=== PATIENT | male | born 1970 | race Caucasian/White ===

== ENCOUNTER → 2022-09-01 11:57 | Outpatient (CLI) | payer OTHER, SELFPAY ==
--- NOTE | ~2022-09-01 | MR_ITS ---
EXAMINATION: MR cervical spine wo/w con DATE: 09/01/2022 13:12 INDICATION: Cervical spondylosis without myelopathy or radiculopathy. TECHNIQUE: Magnetic resonance imaging (MRI) of the cervical spine was performed without and with 20 m L MultiHance intravenous contrast. COMPARISON: Cervical spine radiographs 02/15/2013 FINDINGS: There is kyphosis of cervical spine. There is 4 degrees levocurvature of cervicothoracic sp ine. Vertebral body heights are normal. There is moderately decreased disc height at C4-C5. There are changes of anterior fusion procedure at C5-C6 with interbody bone graft and anterior plate and screw s. The spinal cord signal intensity is normal. The following disc levels are specifically discussed: C2-C3: The disc does not extend beyond the endplate margin. There is no uncovertebral joint osteoarth ritis. There is no facet joint osteoarthritis. There is no neural foraminal stenosis. There is no sierra tral canal stenosis. C3-C4: The disc does not extend beyond the endplate margin. There is mild bilateral uncovertebral merced nt osteoarthritis. There is mild right facet joint osteoarthritis. There is mild right neural foramin al stenosis. There is no central canal stenosis. C4-C5: The disc is bulging. There is severe right and moderate left uncovertebral joint osteoarthriti s. There is mild right facet joint osteoarthritis. There is moderate right and mild left neural isra inal stenosis. There is mild central canal stenosis. C5-C6: There is mild right and moderate left uncovertebral joint hypertrophy. There is mild bilateral facet joint osteoarthritis. There is mild bilateral neural foraminal stenosis. There is no central c anal stenosis. C6-C7: The disc does not extend beyond the endplate margin. There is mild right and moderate left unc overtebral joint osteoarthritis. There is severe right and mild left facet joint osteoarthritis. Ther e is mild right and moderate left neural foraminal stenosis. There is no central canal stenosis. C7-T1: The disc does not extend beyond the endplate margin. There is no uncovertebral joint osteoarth ritis. There is mild bilateral facet joint osteoarthritis. There is moderate neural foraminal stenosi s. There is no central canal stenosis. IMPRESSION: 1. Moderate cervical spondylosis. 2. Anterior fusion procedure C5-C6. Reviewed, dictated and finalized at location A. CAL IMAGING DIRECTOR
== END ==
PROVIDERS: Visit Provider Neurological Surgery
DX: M47.812 Spondylosis without myelopathy or radiculopathy, cervical region (principal); Z98.1 Arthrodesis status
CPT/HCPCS: 72156; A9577

== ENCOUNTER 2023-04-13 17:55 | Emergency (ER) | payer OTHER, SELFPAY ==
--- NOTE | ~2023-04-13 | XR_ITS ---
EXAMINATION: XR chest 2V Exam Date/Time: 04/13/2023 18:30 CDT HISTORY: COUGH, SOB X 2 WEEKS LEFT SIDE LOWER CHEST PAIN Comparison: 04/11/2012. RESULT: Lines, tubes, and devices: ACDF hardware. Lungs and pleura: Clear. Cardiomediastinal silhouette: Stable. Other: No acute osseous or upper abdominal finding. IMPRESSION: No acute cardiopulmonary process. Reviewed, dictated and finalized at location K.
--- NOTE | 2023-04-13 18:21 | ED.URI ---
HPI - URI/Sore Throat General Chief Complaint: Upper Respiratory Infection Stated Complaint: sorethroat,congestion,lt side pain Time Seen by Provider: 04/13/23 18:21 Source: patient, RN notes reviewed and old records reviewed Mode of arrival: ambulatory Limitations: no limitations History of Present Illness HPI Narrative: 53-year-old male presents to the [facility] with complaints of sore throat, congestion, left side lower rib pain. Sore throat started 6 days ago. Congestion and rib pain started this morning. Patient has a history of asthma Related Data Home Medications Medication Instructions Recorded Confirmed albuterol sulfate 90 mcg/actuation 1 inh inhalation QID PRN Shortness 04/13/23 04/13/23 aerosol inhaler Of Breath beclomethasone dipropionate 40 1 inh inhalation Q12H 04/13/23 04/13/23 mcg/actuation HFA breath activated aerosol (Qvar RediHaler) famotidine 20 mg tablet (Pepcid) 20 mg PO DAILY 04/13/23 04/13/23 rosuvastatin 5 mg tablet 5 mg PO DAILY 04/13/23 04/13/23 tiotropium bromide 18 mcg capsule 1 cap inhalation DAILY 04/13/23 04/13/23 with inhalation device (Spiriva with HandiHaler) Allergies Allergy/AdvReac Type Severity Reaction Status Date / Time No Known Allergies Allergy Verified 04/13/23 18:23 Review of Systems Review of Systems: All systems reviewed & are unremarkable except as noted in HPI and below Constitutional: Constitutional: Reports no additional constitutional complaints Eyes: Eyes: Reports no additional eye complaints ENT: Reports as per HPI Cardiovascular: Cardiovascular: Reports no additional cardiovascular complaints, Denies chest pain and Denies dyspnea Respiratory: Respiratory: Reports as per HPI, Reports chest congestion, Reports cough and Reports dyspnea Gastrointestinal: Gastrointestinal: Reports no additional gastrointestinal complaints, Denies abdominal pain, Denies nausea and Denies vomiting Musculoskeletal: Musculoskeletal: Reports no additional musculoskeletal complaints Integumentary/Breasts: Skin/Breast: Reports system reviewed and no additional complaints, except as docu Neurologic: Reports system reviewed and no additional complaints, except as documented Psychiatric: Psychiatric: Reports no additional psychiatric complaints Allergic/Immunologic: Allergic/Immunologic: Reports no additional allergic/immunologic complaints PMFSH Past Medical History Medical History (Updated 04/13/23 @ 20:23 by Estelle Mei APRN) Asthma High cholesterol Family History Family History Other Diabetes mellitus Social History Social History Smoking status: Never smoker Alcohol intake: current Comments At the time of my signature, I reviewed and agree with the nursing past medical, surgical, social, and family history. There is no relevant family history pertinent to the patient complaint. Exam Const: General: cooperative, no acute distress, well developed, alert, ill appearing acutely (Mild), tired appearing, uncomfortable, well nourished and obese Nutritional Appearance: well nourished and obese Orientation/consciousness: patient oriented x3 Limitations: no limitations HENMT: Head: normal to inspection Ears: hearing grossly normal bilaterally and external ears normal Face/Nose/Sinus: Normal external nose present, Normal nares present, Normal nasal mucous membranes and turbinates present, normal facial exam and face symmetric Face and sinus: normal facial exam and face symmetric Mouth: Yes Normal oral and palatal mucosa present, Yes lip normal and Yes moist mucous membranes Throat: uvula midline and posterior oropharynx abnormal erythema Eyes: General: appearance normal, both eyes and all related structures Alignment and Position: alignment normal Periorbital: periorbital findings normal Pupils: Equal, round and reactive pupils present
[2023-04-13 18:32] VITALS: BP 146/92; PULSE 115; RESP 20; TEMP 38; O2SAT 100
== END 2023-04-13 19:06 | disposition home or self-care (01) ==
PROVIDERS: Emergency Provider Nurse Practitioner
DX: J40 Bronchitis, not specified as acute or chronic (principal); J06.9 Acute upper respiratory infection, unspecified; J45.909 Unspecified asthma, uncomplicated; E78.00 Pure hypercholesterolemia, unspecified
CPT/HCPCS: 71046; 87081; 87880; 99213; G0463

== ENCOUNTER 2023-04-13 23:03 | Emergency (ER) | payer OTHER, SELFPAY ==
--- NOTE | ~2023-04-13 | CT_ITS ---
Non-contrast CT scan of the Abdomen and Pelvis Clinical indication: Flank pain Technique: 2.5 mm axial scans were obtained through the abdomen and pelvis without intravenous or or al contrast. Dose reduction technique was used on this scan by utilizing automated exposure control a nd iterative reconstruction technique. The dose-length product (DLP) was 1478.34 mGy-cm. COMPARISON: 11/24/2011 Findings: Images through the lung bases reveal no abnormalities. There is a 5 mm stone at the mid left ureter, resulting in mild left hydroureteronephrosis to this le perlita (axial image 133). Additional small bilateral nonobstructing renal stones are present, measuring up to 2 mm in size. No right ureteral stone or right hydronephrosis. Hepatic cysts are present. The spleen, pancreas, gallbladder, and adrenals appear normal. There is n o aortic aneurysm. There is no evidence of bowel obstruction. Images through the pelvis were performed. There is no evidence of ascites or lymphadenopathy. Urinary bladder unremarkable. Prostate gland is enlarged. Impression: 5 mm mid left ureteral stone, with mild left hydroureteronephrosis. Additional very small bilateral nonobstructing renal stones, as detailed above. Enlarged prostate gland. Reviewed, dictated and finalized at location . Impression: 5 mm mid left ureteral stone, with mild left hydroureteronephrosis. Additional very small bilateral nonobstructing renal stones, as detailed above. Enlarged prostate gland.
[2023-04-13 23:33] VITALS: BP 144/84; PULSE 96; RESP 16; TEMP 36.6; O2SAT 98
[2023-04-14 03:53] VITALS: BP 132/87; PULSE 84; RESP 17; O2SAT 98
[2023-04-14] MEDS: MORPHINE SULFATE (*CRX) 4 MG/ML INJ IV PUSH ×2 (04:09→06:18)
[2023-04-14] MEDS: BENZONATATE 100 MG CAPSULE PO (04:10)
[2023-04-14] MEDS: KETOROLAC 30 MG/ML VIAL (*BKC) IV PUSH (04:10)
[2023-04-14] MEDS: SODIUM CHLORIDE 0.9% IV 1,000 ML 999 ML IV CONT (04:10)
[2023-04-14 04:25] LABS: Basophils Absolute Auto 0.1 K/mm3 (0.0-0.1); Basophils Percent Auto 0.5 % (0.2-1.2); Eosinophils Absolute Auto 0.2 K/mm3 (0-0.3); Eosinophils Percent Auto 1.5 % (0-4.4); Hematocrit 44.6 % (42.0-52.0); Hemoglobin 15.1 g/dL (14.0-18.0); Immature Granulocyte Absolute 0.05 K/mm3 (0.00-0.031); Immature Granulocyte Percent A 0.5 % (0-0.5); Lymphocytes Absolute Auto 1.22 K/mm3 (0.9-3.2); Lymphocytes Percent Auto 11.1 % (18.3-44.2); Mean Corpuscular HGB Conc 33.9 g/dl (32-36); Mean Corpuscular Hemoglobin 29.5 pg (26-34); Mean Corpuscular Volume 87.3 fl (80-100); Mean Platelet Volume 9.6 fl (7.4-10.4); Monocytes Absolute Auto 1.1 K/mm3 (0.1-0.6); Monocytes Percent Auto 10.1 % (2.6-8.5); Neutrophils Absolute Auto 8.4 K/mm3 (1.3-6.7); Neutrophils Percent Auto 76.3 % (45.5-73.1); Platelet Count Result 161 k/mm3 (150-375); Red Blood Count 5.11 M/mm3 (4.6-6.20); Red Cell Distribution Width 12.9 % (11.5-14.5)
[2023-04-14 04:30] LABS: Appearance Urine Clear (Clear); Bacteria Urine None Seen /hpf; Bilirubin Urine Negative (Negative); Blood Urine 1+ (Negative); Color Urine Yellow (Yellow); Glucose Urine UA Negative (Negative); Ketones Urine Negative (Negative); Leukocyte Esterase Ur Negative LEU/UL (Negative); Nitrate Urine Negative (Negative); Non Pathogenic Casts 0-2; Protein Urine Negative (Negative); Specific Grav Ur 1.012 (1.001-1.035); Squamous Epithelial Cell Urine None seen /hpf (Few); Urobilinogen Urine 0.2 mg/dL (<2.0); WBC Urine 0-5 /hpf; pH Urine 5.5 (5.0-9.0)
[2023-04-14 04:36] LABS: Alanine Aminotransferase 43 U/L (6-50); Albumin Level 4.6 g/dL (3.5-5.1); Alkaline Phosphatase 54 U/L (38-126); Anion Gap 10 mmol/L (8-16); Aspartate Amino Transferase 30 U/L (17-59); Bilirubin,Total 1.3 mg/dL (0.2-1.3); Blood Urea Nitrogen 19 mg/dL (9-20); Calcium 9.1 mg/dL (8.4-10.2); Carbon Dioxide 23 mmol/L (22-30); Chloride 104 mmol/L (98-107); Estimated CRCL calculation 57 ml/min; Estimated Glomerular Filt Rate 45; Glucose 110 mg/dL (65-110); Sodium 137 mmol/L (137-145)
[2023-04-14 04:38] LABS: Add Urine Microscopic? YES
[2023-04-14 04:40] VITALS: PULSE 74; RESP 14; O2SAT 95
--- NOTE | 2023-04-14 04:57 | ED.ABDPAIN ---
HPI - Abdominal Pain General Chief Complaint: Abdominal Pain Stated Complaint: left sided back pain Time Seen by Provider: 04/14/23 03:40 History of Present Illness HPI narrative: Patient presents to the emergency department from home with persistent left flank pain. He has also had upper respiratory symptoms and was seen at urgent care today. They told him his flank pain was likely related to the cough. However he has a history of kidney stones and believes this is more consistent with his kidney stone pain. Medications at home were not helping. Denies urinary symptoms. Denies fevers and chills. Was started on azithromycin and steroids today from urgent care. Related Data Home Medications Medication Instructions Recorded Confirmed albuterol sulfate 90 mcg/actuation 1 inh inhalation QID PRN Shortness 04/13/23 04/13/23 aerosol inhaler Of Breath beclomethasone dipropionate 40 1 inh inhalation Q12H 04/13/23 04/13/23 mcg/actuation HFA breath activated aerosol (Qvar RediHaler) famotidine 20 mg tablet (Pepcid) 20 mg PO DAILY 04/13/23 04/13/23 rosuvastatin 5 mg tablet 5 mg PO DAILY 04/13/23 04/13/23 tiotropium bromide 18 mcg capsule 1 cap inhalation DAILY 04/13/23 04/13/23 with inhalation device (Spiriva with HandiHaler) Allergies Allergy/AdvReac Type Severity Reaction Status Date / Time No Known Allergies Allergy Verified 04/14/23 03:52 Review of Systems Review of Systems: Review of systems negative except for what is documented in the [facility] Past Medical History Medical History (Updated 04/14/23 @ 05:47 by Karrie Fallon MD) Asthma High cholesterol Family History Family History Other Diabetes mellitus Social History Social History Smoking status: Never smoker Alcohol intake: current Exam Narrative: GENERAL: Well-appearing, well-nourished, and in no acute distress. uncomfortable HEAD: Normocephalic, atraumatic. EYES: PERRLA and EOMI. ENT: Nares clear, no rhinorrhea or epistaxis. Mucous membranes moist. NECK: Supple. CHEST: Clear to auscultation. No respiratory distress. HEART: Regular rate and rhythm. ABDOMEN: Soft, nontender, nondistended. EXTREMITIES: Normal range of motion. No edema. SKIN: Warm, dry, no rash. NEURO: No focal deficits. Alert and oriented x3. PSYCH: Normal mood and affect. Course Course Emergency Course: Patient was started on antibiotics and steroids today for bacterial bronchitis due to history of asthma. He was very uncomfortable upon my initial exam. 5.5 mm kidney stone noted. Upon further evaluation his creatinine is 1.6. He states it has been a little high in the past but is unsure. We will look at previous values. No urinary tract infection. Patient is feeling better. Will DC with urology follow-up Patient found old creatinine results 1.1. Overall he is feeling better. He will follow-up with urology today. Advised to drink plenty of fluids. Vital Signs Vital signs: Vital Signs Temperature 36.6 C 04/13/23 23:33 Pulse Rate 96 04/13/23 23:33 Respiratory Rate 16 04/13/23 23:33 Blood Pressure 144/84 H 04/13/23 23:33 Pulse Oximetry 98 04/13/23 23:33 Oxygen Delivery Room Air 04/13/23 23:33 Temperature 36.6 C 04/13/23 23:33 Pulse Rate 74 04/14/23 04:40 Respiratory Rate 14 04/14/23 04:40 Blood Pressure 132/87 04/14/23 03:53 Pulse Oximetry 95 04/14/23 04:40 Oxygen Delivery Room Air 04/13/23 23:33 MDM - Abdominal Pain Lab Data 04/14/23 04:18 04/14/23 04:18 Labs: Lab Results 04/14/23 Range/Units 04:18 WBC 11.0 H (4.5-10.0) K/mm3 RBC 5.11 (4.6-6.20) M/mm3 Hgb 15.1 (14.0-18.0) g/dL Hct 44.6 (42.0-52.0) % MCV 87.3 (80-100) fl MCH 29.5 (26-34) pg MCHC 33.9 (32-36) g/dl RDW 12.9 (11.5-14.5) % Plt Count 161
[2023-04-14 06:39] VITALS: BP 119/71; PULSE 76; O2SAT 95
--- NOTE | 2023-04-23 15:01 | PC.NURSE ---
LATE ENTRY This note is being entered to document information to the patient's record. The following information was omitted on [04/14/23], by [Judie Browning RN]. O445 IV fluids NS infused.
--- NOTE | 2023-04-24 07:09 | PC.NURSE ---
LATE ENTRY This note is being entered to document information to the patient's record. The following information was omitted on [04/14/23], by [Judie Trujillo. JOSELITO coekr @ [id number]
== END 2023-04-14 06:34 | disposition home or self-care (01) ==
PROVIDERS: Emergency Provider Emergency Medicine
DX: N13.2 Hydronephrosis with renal and ureteral calculous obstruction (principal); N28.9 Disorder of kidney and ureter, unspecified; J45.909 Unspecified asthma, uncomplicated; E78.00 Pure hypercholesterolemia, unspecified; N40.0 Benign prostatic hyperplasia without lower urinary tract symptoms
CPT/HCPCS: 36415; 71046; 74176; 80053; 81001; 85025; 87081; 87880; 96361; 96374; 96375; 96376; 99284; A9270; J1885; J2270; J7030

== ENCOUNTER 2023-04-24 14:32 | Outpatient (CLI) | payer OTHER, SELFPAY ==
--- NOTE | ~2023-04-24 | CT_ITS ---
EXAMINATION: CT abdomen pelvis wo con DATE: 04/24/2023 15:06 INDICATION: Left ureteral stone TECHNIQUE: Computed tomography (CT) of the abdomen and pelvis was performed without intravenous contr ast. Automated exposure control and iterative reconstruction technique were employed. Exam dose: 438 .49 mGy-cm total exam DLP. COMPARISON: 04/24/2023 KUB 04/14/2023 CT abdomen pelvis noncontrast examination FINDINGS: Mild discoid atelectasis of the lingula and left lower lobe. No consolidation at the lung b ases. No pericardial or pleural effusion. There is a small sliding hiatal hernia. There are four cystic lesions, measuring up[ to 3.7 cm maximal size. These have increased in size s tyra 11/24/2011. The spleen, pancreas, adrenal glands are normal. There is an approximately 3.7 x 4.6 mm calculus of the left ureter with mild to moderate left hydrour eteronephrosis. There is an approximately 2 mm nonobstructing right renal calculus. Normal caliber of the abdominal aorta. No intraperitoneal or retroperitoneal or pelvic mass lesion o r lymphadenopathy. No ascites. No evidence of appendicitis. There is a prominent amount of feces in the rectosigmoid area. No harry l obstruction or intraperitoneal free air. Prostate enlargement and calcification. Small fat containing umbilical hernia. No suspicious osteolytic or osteoblastic lesions. IMPRESSION: 4.7 mm obstructing left ureteral calculus with mild to moderate left hydroureteronephros is 2 mm nonobstructing right renal calculus Probable hepatic cysts Small sliding hiatal hernia Reviewed, dictated and finalized at Location A. Reviewed, dictated and finalized at location A. IMPRESSION: 4.7 mm obstructing left ureteral calculus with mild to moderate le ft hydroureteronephrosis 2 mm nonobstructing right renal calculus Probable hepatic cysts Small sliding hiatal hernia
--- NOTE | ~2023-04-24 | XR_ITS ---
XR abdomen/kub 1V DATE: 04/24/2023 15:01 INDICATION: Left ureteral stone follow-up TECHNIQUE: 2 AP views COMPARISON: 04/24/2023 CT abdomen pelvis FINDINGS: There is apparent urinary tract calcified calculus is detected radiographically. The left u reteral calculus noted on 04/14/2023 may be radiographically occult or may have passed since 04/14/2023 . If further evaluation is needed, consider repeat noncontrast CT abdomen pelvis. No evidence of bowel obstruction. The psoas shadows are intact. No visceromegaly is detected. IMPRESSION: Nonspecific abdomen; no calcified urinary tract calculus is evident Reviewed, dictated and finalized at Location A. Reviewed, dictated and finalized at location A.
== END 2023-04-24 14:33 | disposition home or self-care (01) ==
PROVIDERS: Visit Provider Urology
DX: K44.9 Diaphragmatic hernia without obstruction or gangrene (principal); N20.2 Calculus of kidney with calculus of ureter
CPT/HCPCS: 74018; 74176

== ENCOUNTER 2023-05-05 01:31 | Day surgery (SDC) | payer OTHER, SELFPAY ==
[2023-05-04 09:31] VITALS: BMI 36.5
--- NOTE | 2023-05-04 09:39 | PC.NURSE ---
Report to the Outpatient Waiting Room, entrance under the green pavilion located off [facility], at time 1100 on date 05/05/23. Planned Procedure Time: 1300. Time changes happen often and if your time is changed the preop area will call you the afternoon before. - You and your visitor will be asked to self-screen and do not enter if you have any COVID symptoms. - A mask is optional within the hospital at this time. Patients may have clear liquids (water, carbonated beverages, clear teas, apple juice) until 3 hours prior to surgery with a maximum of 20 ounces. - No food from midnight until time of surgery Take the following medications with a SIP of water the morning of surgery: INHALERS, PAIN PILL IF NEEDED DO NOT STOP ANY OF YOUR OTHER PRESCRIPTION MEDICATIONS PRIOR TO SURGERY ?EXCEPT THE FOLLOWING Medications to discontinue per physician: N/A Date to take last dose: N/A Please no make-up, nail turkmen, hairspray, perfume, deodorant, or body powder the day of surgery. No jewelry (including any body piercings) or valuables the day of surgery, leave them at home. Please take a shower or bath the night before, or the morning of, surgery with an antibacterial soap. Wear comfortable, loose fitting clothing. - Jewelry must be removed prior to entering the operating room. Rings and piercings that are not removed may be cut off. - The hospital will not accept responsibility for valuables. - Please leave all valuables, including medications, at home the day of surgery. If you are going home after surgery, a licensed wheelchair van driver must drive you home. - NO public transportation without another adult if you receive anesthesia. - We recommend that an adult stay with you for 24 hours following discharge. - We also recommend that you do not drive, make important decision, drink alcoholic beverages, or take any drugs that were not prescribed by your health care provider for at least 24 hours after your discharge time. Follow any additional instructions given to you from your surgeon. If you or anyone in your household have experienced Covid symptoms in the past week, please notify your surgeon or the nurse liaison at the phone number below for possible testing. Telephone instructions given to PT - LEONCIO ALONSO and asked if any additional questions and then verbalized understanding. Patient advised to call surgeon office or pre surgery nurse liaison [phone] if any additional questions.
[2023-05-05] VITALS (8 sets, daily range): BP systolic 120–142; BP diastolic 75–90; PULSE 59–85; RESP 14–20; TEMP 36.2–36.3; O2SAT 97–100
--- NOTE | ~2023-05-05 | XR_ITS ---
EXAMINATION: XR retrograde pyelo w/stent LT DATE: 05/05/2023 15:22 INDICATION: Left ureteral stone. TECHNIQUE: 3 intraoperative spot fluoroscopic views of the abdomen were obtained. I was not present. Fluoroscopy exposure time was 30 seconds. COMPARISON: CT abdomen and pelvis 04/24/2023 FINDINGS: The left-sided retrograde pyelogram is unremarkable. There is a left internal ureteral sten t in expected position. IMPRESSION: 1. Left internal ureteral stent in expected position. Reviewed, dictated and finalized at location E.
--- NOTE | 2023-05-05 08:22 | ECG_ITS ---
Measurements Intervals [place] Rate: 69 P: 34 VT: 191 QRS: 14 QRSD: 96 T: 13 QT: 384 QTc: 412 Interpretive Statements SINUS RHYTHM NO PREVIOUS ECG AVAILABLE FOR COMPARISON Electronically Signed On 05-05-2023 12:44:01 CDT by Sherrie Salmeron M.D.
[2023-05-05] MEDS: LACTATED RINGERS 1,000 ML 30 ML IV CONT (11:20)
--- NOTE | 2023-05-05 12:51 | SUR.PREOP ---
1220-Pt and aware surgeon delays self 1-1 1/2 hours. Pt also states IV site uncomfortable, site checked-infiltrated and dc'd.
--- NOTE | 2023-05-05 13:33 | WPDHPUPDATE1 ---
History and Physical Update Update Date/Time: 05/05/23 13:33 History and Physical has been reviewed, including an updated exam of the patient. There are NO changes in the patient's condition. Risks, benefits, and alternatives have been discussed and questions answered. Patient agrees to proceed with procedure. Proceed with cystoscopy, left retrograde pyelogram, left ureteroscopy with stone extraction, possible laser, stent placement
--- NOTE | 2023-05-05 13:36 | PM.IMHP ---
H&P: HPI History of Present Illness Date/Time: 05/05/23 13:36 Chief Complaint: 4.7 mm left ureteral calculus Narrative: Pleasant 53-year-old male who was failed conservative management regarding his left ureteral stone. Continues to have some discomfort in the groin area. He now presents for cystoscopy left retrograde pyelogram left ureteroscopy with stone extraction possible laser and stent placement. Review of Systems Review of Systems: All systems reviewed & are unremarkable except as noted in HPI and below PMFSH Past Medical History Medical History (Updated 05/05/23 @ 13:38 by Jelani Booker MD) Asthma High cholesterol Family History Family History Other Diabetes mellitus Social History Social History Smoking status: Never smoker Alcohol intake: current Drinks per week: 3 Substance use: never Substance use type: does not use Living arrangements: with family Spiritual care concerns: No Meds Home Medications and Allergies Home Medications Medication Instructions Recorded Confirmed Type albuterol sulfate 90 mcg/actuation 1 inh inhalation QID PRN Shortness 04/13/23 05/05/23 History aerosol inhaler Of Breath beclomethasone dipropionate 40 1 inh inhalation Q12H 04/13/23 05/05/23 History mcg/actuation HFA breath activated aerosol (Qvar RediHaler) famotidine 20 mg tablet (Pepcid) 20 mg PO DAILY 04/13/23 05/05/23 History rosuvastatin 5 mg tablet 5 mg PO DAILY 04/13/23 05/05/23 History tiotropium bromide 18 mcg capsule 1 cap inhalation DAILY 04/13/23 05/05/23 History with inhalation device (Spiriva with HandiHaler) hydrocodone 5 mg-acetaminophen 325 1 tablet PO Q6H PRN pain #20 tabs 04/14/23 05/05/23 Rx mg tablet Allergies Allergy/AdvReac Type Severity Reaction Status Date / Time No Known Allergies Allergy Verified 05/05/23 11:10 Vital Signs Vital Signs - 24 hr 05/05/23 11:12 Temperature 36.2 C L Pulse Rate 68 Respiratory Rate 18 Blood Pressure 142/81 H Pulse Oximetry 100 Oxygen Delivery Room Air Exam Const: General: cooperative, healthy appearing and no acute distress HENMT: Head: normal to inspection Chest: Chest palpation & inspection: normal inspection of the chest Resp: Effort & Inspection: normal respiratory effort Cardio: Rate: regular rate Rhythm: regular rhythm GI: Inspection: normal to inspection Assessment and Plan Assessment and plan (1) Left ureteral calculus: Code(s): N20.1 - Calculus of ureter Status: Acute Assessment and Plan: Proceed with cysto, left retrograde pyelogram, left ureteroscopy with stone extraction, possible laser, possible stent placement
--- NOTE | 2023-05-05 14:30 | P.PNAN_ITS ---
Anes - Eval Pre Procedure Procedure: Operation Date: 05/05/23 13:00 Proposed Procedures p Cystoscopy, Left Ureteroscopy, Left Retrograde Pyelogram, Left Stone Extraction, Possible Holmium Laser, Possible Left Stent Placement - Jelani Booker MD Date/Time: 05/05/23 14:30 Pre Op Diagnosis: Lt Ureteral Stone Patient Data Age: 53 Gender: M Height: 1.73 m Weight: 108.9 kg Last Vital Signs Temp 36.2 C L 05/05/23 11:12 Pulse 68 05/05/23 11:12 Resp 18 05/05/23 11:12 BP 142/81 H 05/05/23 11:12 Pulse Ox 100 05/05/23 11:12 O2 Del Method Room Air 05/05/23 11:12 Allergies Allergy/AdvReac Type Severity Reaction Status Date / Time No Known Allergies Allergy Verified 05/05/23 11:10 Home Medications Medication Instructions Recorded Confirmed Type albuterol sulfate 90 mcg/actuation 1 inh inhalation QID PRN Shortness 04/13/23 05/05/23 History aerosol inhaler Of Breath beclomethasone dipropionate 40 1 inh inhalation Q12H 04/13/23 05/05/23 History mcg/actuation HFA breath activated aerosol (Qvar RediHaler) famotidine 20 mg tablet (Pepcid) 20 mg PO DAILY 04/13/23 05/05/23 History rosuvastatin 5 mg tablet 5 mg PO DAILY 04/13/23 05/05/23 History tiotropium bromide 18 mcg capsule 1 cap inhalation DAILY 04/13/23 05/05/23 History with inhalation device (Spiriva with HandiHaler) hydrocodone 5 mg-acetaminophen 325 1 tablet PO Q6H PRN pain #20 tabs 04/14/23 05/05/23 Rx mg tablet Patient hx anesthesia problems: none Family hx anesthesia problems: none Results Review: All pre-operative results and documents have been reviewed as part of the pre- operative evaluation. [facility] Past Medical History Medical History Asthma High cholesterol Family History Family History Other Diabetes mellitus Social History Social History Smoking status: Never smoker Alcohol intake: current Drinks per week: 3 Substance use: never Substance use type: does not use Living arrangements: with family Spiritual care concerns: No Exam Day of Procedure 05/05/23 14:30 Patient weight: obese Heart: regular rate and rhythm Lungs: clear to auscultation Airway: Mallampati scale class II Neurological: alert and oriented
--- NOTE | 2023-05-05 14:36 | P.PNAN_ITS ---
Anes - Eval Final PreProcedure Day of Procedure 05/05/23 14:36 Patient weight: obese Heart: regular rate and rhythm Lungs: clear to auscultation Airway: Mallampati scale class II Neurological: alert and oriented Last oral intake: >/= 8 hours ASA classification: II Emergent: no Anesthetic plan: proceed Anesthesia type and monitoring: general LMA and standard monitoring Results Review: All pre-operative results and documents have been reviewed as part of the pre- operative evaluation. Informed Consent: The patient's anesthetic plan and its attendant risks and benefits were discussed with the patient/family/POA. Questions were solicited and answers provided to the satisfaction of the patient/family/POA.
[2023-05-05] MEDS: SCOPOLAMINE 1.5 MG PATCH TRANSDERM (14:43)
[2023-05-05] MEDS: ceFAZolin 2 GM/D5W 50 ML 2 GM/50 ML BAG IVPB (14:51)
[2023-05-05] MEDS: LIDOCAINE HCL 2% GEL UROJET 10 ML PKG MUCOUS MEM (14:52)
--- NOTE | 2023-05-05 15:16 | P.OP_ITS ---
Procedure Note - Detailed Date of Procedure 05/05/23 Pre-op Diagnosis Lt Ureteral Stone Post-op Diagnosis Same Procedure Performed Cystoscopy, left retrograde pyelogram, left ureteroscopy with stone extraction, left ureteral stent placement 4.8 Gabonese contour Surgeon Jelani Booker MD Anesthesia General Description of Procedure Patient is taken to the operative suite correctly identified. Once anesthesia was obtained he was placed in dorsal lithotomy position and prepped draped usual sterile fashion. Twenty-two Gabonese scope inserted the bladder. There were no tumors noted. He does have somewhat of an elevated median bar area. The left ureteral orifice was cannulated with a guidewire. It was dilated with an 8/10 dilator. Rigid ureteral scope was inserted into the orifice. The stone was visualized. Using an escape basket stone was retrieved 1 piece. Reinspection reveals no residual stone. Pyelogram was then performed to confirm placement of the stent. 4.8 Gabonese contour stent was then placed with the proximal end coiled in the renal pelvis and the distal in the bladder. Bladder was drained. 2% viscous lidocaine was inserted urethra patient is taken recovery stable condition. He will follow-up in a week's time for stent removal. This completes dictation. Please send a copy of op note to my office. Estimated Blood Loss 0 Drains Yes Packing No Pathology Yes Complications No immediate complications Condition Stable Disposition PACU
[2023-05-05] MEDS: oxyCODONE HCL (*CRX) 5 MG TAB IR PO (16:28)
== END 2023-05-05 16:54 | disposition home or self-care (01) ==
PROVIDERS: Visit Provider Urology
PROC: (CPT 52352; principal; 2023-05-05 13:00)
DX: N20.1 Calculus of ureter (principal); Z79.51 Long term (current) use of inhaled steroids; J45.909 Unspecified asthma, uncomplicated; E78.00 Pure hypercholesterolemia, unspecified; E66.9 Obesity, unspecified; Z68.36 Body mass index [BMI] 36.0-36.9, adult
CPT/HCPCS: 52352; 52332; 74420; 82365; 88300; 93005; A9270; C1769; C2617; J0690; J2250; J2405; J2704; J3010; J7120; Q9966

== ENCOUNTER 2023-05-17 17:35 | Emergency (ER) | payer OTHER, SELFPAY ==
--- NOTE | 2023-05-17 17:50 | ED.MALEGU ---
HPI - Male Genitourinary General Chief complaint: Urogenital-Male Stated complaint: uti symptoms Time Seen by Provider: 05/17/23 17:50 Source: patient Mode of arrival: ambulatory Limitations: no limitations History of Present Illness HPI Narrative: 53-year-old male presents with complaint of urinary frequency, dysuria starting yesterday. Reports today his temp is 101? F. patient has history of kidney stones. Reports large stone removed from left kidney, still has small stones to right kidney. Had stent removed 6 days ago. Patient sees urologist at [facility]. Reports that he was unable to get a hold of office today. Denies back and abdominal pain. Denies nausea vomiting. Patient well-appearing and talkative. All systems reviewed and negative except as noted above. Related Data Home Medications Medication Instructions Recorded Confirmed albuterol sulfate 90 mcg/actuation 1 inh inhalation QID PRN Shortness 04/13/23 05/05/23 aerosol inhaler Of Breath beclomethasone dipropionate 40 1 inh inhalation Q12H 04/13/23 05/05/23 mcg/actuation HFA breath activated aerosol (Qvar RediHaler) famotidine 20 mg tablet (Pepcid) 20 mg PO DAILY 04/13/23 05/05/23 rosuvastatin 5 mg tablet 5 mg PO DAILY 04/13/23 05/05/23 tiotropium bromide 18 mcg capsule 1 cap inhalation DAILY 04/13/23 05/05/23 with inhalation device (Spiriva with HandiHaler) Allergies Allergy/AdvReac Type Severity Reaction Status Date / Time No Known Allergies Allergy Verified 05/05/23 11:10 Review of Systems Review of Systems: CONSTITUTIONAL: Reports fever. Denies chills, or sweats. EYES: Denies visual changes, redness, or discharge. ENT: Denies rhinorrhea, congestion, sore throat, or otalgia. CARDIOVASCULAR: Denies chest pain, palpitations, or edema. RESPIRATORY: Denies cough or dyspnea. GASTROINTESTINAL: Denies abdominal pain, nausea, vomiting, or diarrhea. GENITOURINARY: report dysuria, urinary frequency . Denies hematuria. SKIN: Denies rash or itching. MUSCULOSKELETAL: Denies back pain, joint pain, or myalgia. NEUROLOGIC: Denies headache, numbness, or weakness. PSYCHIATRIC: Denies anxiety or depression. All other systems reviewed are negative, except as documented in HPI. [facility] Past Medical History Medical History Asthma High cholesterol Family History Family History Other Diabetes mellitus Social History Social History Smoking status: Never smoker Alcohol intake: current Drinks per week: 3 Substance use: never Substance use type: does not use Living arrangements: with family Spiritual care concerns: No Comments At time of signature, agree with nursing past medical, surgical, social and family history. There is no relevant family history pertinent to the presenting complaint. Exam Narrative: GENERAL: This is a well-nourished, well-developed patient, in no apparent distress. HEAD: normocephalic, atraumatic. EYES: PERRL. Sclera clear/white. Vision is grossly intact. EARS: External ears normal NOSE: External nose normal NECK: Neck supple, non-tender without lymphadenopathy, masses or thyromegaly. CARDIOVASCULAR: Regular rate and rhythm without murmurs, gallops, or rubs. RESPIRATORY: Clear to auscultation. Breath sounds equal bilaterally. No wheezes, rales, or rhonchi. SKIN: warm, Dry, intact with no suspicious lesions or rash, good texture and turgor. NEURO: awake, alert, and oriented to person, place and time. There were no obvious focal neurologic abnormalities. EXTREMITIES: No joint tenderness, effusion, or edema noted. Course Course Level of Care: Express Care Visit Vital Signs Vital signs: Vital Signs Temperature 39.4 C H 05/17/23 17:57 Pulse Rate 111 H 05/17/23 17:57 Respiratory Rate 20 10/
[2023-05-17 17:57] VITALS: BP 157/99; PULSE 111; RESP 20; TEMP 39.4; O2SAT 98
[2023-05-17 18:07] VITALS: TEMP 39.4
[2023-05-17] MEDS: ACETAMINOPHEN 500 MG TABLET 1000 MG PO (18:07)
[2023-05-17] MEDS: cefTRIAXone 1 GM, LIDOCAINE HCL 1% LOCAL INJ 2.1 ML IM (18:24)
[2023-05-17 18:42] VITALS: BP 139/83; PULSE 95; RESP 20; TEMP 38; O2SAT 100
[2023-05-17 18:45] VITALS: TEMP 38
== END 2023-05-17 18:50 | disposition home or self-care (01) ==
PROVIDERS: Emergency Provider Nurse Practitioner Family
DX: N39.0 Urinary tract infection, site not specified (principal); J45.909 Unspecified asthma, uncomplicated; E78.00 Pure hypercholesterolemia, unspecified
CPT/HCPCS: 81003; 87086; 87147; 87181; 87186; 96372; 99213; A9270; G0463; J0696

== ENCOUNTER 2023-10-11 14:39 | Emergency (ER) | payer OTHER, SELFPAY ==
--- NOTE | 2023-10-11 14:50 | ED.GENADULT ---
HPI - General Adult General Chief complaint: Chest Pain Stated complaint: Lt Chest Pain Time Seen by Provider: 10/11/23 14:50 Source: patient Mode of arrival: ambulatory Limitations: no limitations History of Present Illness HPI narrative: 53-year-old male patient presents to the [facility] with complaints of left-sided chest pain on the lateral side. Patient states that he did have a recent colds. Patient states he has been having chest pain to the lateral side that seems to be getting worse over the last 3 days really started noticing it this past Thursday. 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 Patient states that the Holter monitor did not show anything and he is post follow-up with his decating machine operator next week. Patient does have history of high cholesterol does take statins for this. Patient denies any her shortness of breath but states that the pain is worse when taking a deep breath in. Denies any fevers, body aches or chills currently. Denies any shortness of breath on exertion. Related Data Home Medications Medication Instructions Recorded Confirmed albuterol sulfate 90 mcg/actuation 1 inh inhalation QID PRN Shortness 04/13/23 05/05/23 aerosol inhaler Of Breath beclomethasone dipropionate 40 1 inh inhalation Q12H 04/13/23 05/05/23 mcg/actuation HFA breath activated aerosol (Qvar RediHaler) famotidine 20 mg tablet (Pepcid) 20 mg PO DAILY 04/13/23 05/05/23 rosuvastatin 5 mg tablet 5 mg PO DAILY 04/13/23 05/05/23 tiotropium bromide 18 mcg capsule 1 cap inhalation DAILY 04/13/23 05/05/23 with inhalation device (Spiriva with HandiHaler) Allergies Allergy/AdvReac Type Severity Reaction Status Date / Time No Known Allergies Allergy Verified 05/05/23 11:10 Review of Systems Review of Systems: CONSTITUTIONAL: Denies fever, chills, or sweats. EYES: Denies visual changes, redness, or discharge. ENT: Denies rhinorrhea, congestion, sore throat, or otalgia. CARDIOVASCULAR: Positive left-sided chest pain, denies current palpitations, or edema. RESPIRATORY: Denies cough or dyspnea. GASTROINTESTINAL: Denies abdominal pain, nausea, vomiting, or diarrhea. GENITOURINARY: Denies dysuria or hematuria. SKIN: Denies rash or itching. MUSCULOSKELETAL: Denies back pain, joint pain, or myalgia. NEUROLOGIC: Denies headache, numbness, or weakness. PSYCHIATRIC: Denies anxiety or depression. [facility] Past Medical History Medical History Asthma High cholesterol Family History Family History Other Diabetes mellitus Social History Social History Smoking status: Never smoker Alcohol intake: current Drinks per week: 3 Substance use: never Substance use type: does not use Living arrangements: with family Spiritual care concerns: No Comments At the time of my signature I agree with nursing past medical history, surgical, social, and family history. There is no relevant family history pertinent to the presenting complaint. Exam Narrative: GENERAL: Well-appearing, well-nourished, and in no acute distress. HEAD: Normocephalic, atraumatic. EYES: PERRLA and EOMI. ENT: Nares clear, no rhinorrhea or epistaxis. Mucous membranes moist. NECK: Supple. No lymphadenopathy CHEST: CTA, no wheezing, rhonchi or rales, no orthopena or dyspnea. Able to speak in clear complete sentences, no retractions or accessory muscle use. No tripod positioning. No surface trauma HEART: Regular rate and rhythm. No murmur heard. Normal peripheral pulses. ABDOMEN: Soft, nontender, nondistended, normal active bowel sounds. EXTREMITIES: Normal range of motion. No edema. SKIN: Warm, dry, no rash. NEURO: No focal deficits. Alert and oriented x3. Course Course Level of Care: Express
--- NOTE | 2023-10-11 15:01 | ECG_ITS ---
Measurements Intervals Paia Rate: 76 P: 45 ID: [id number] QRS: 18 QRSD: 101 T: 32 QT: 379 QTc: 429 Interpretive Statements SINUS RHYTHM MINIMAL Q WAVES- LAT/HIGH LAT LEADS BASELINE ARTIFACT- II, III, AVF BORDERLINE ECG COMPARED TO ECG 05/05/2023 11:35:41 NO SIGNIFICANT CHANGES Electronically Signed On 10-12-2023 6:29:28 CDT by Blue Doran D.O.
[2023-10-11 15:03] VITALS: BP 140/88; PULSE 72; RESP 20; TEMP 36.5; O2SAT 97
--- NOTE | 2023-10-11 15:31 | PC.NURSE ---
911 called to transfer patient to hospital. [facility]. Patient states intention to drive himself to [facility] and for his to meet him there. 3 81 mg aspirin given prior to patient leaving AMA
== END 2023-10-11 15:36 | disposition left against medical advice (07) ==
PROVIDERS: Emergency Provider Nurse Practitioner Family
DX: R07.9 Chest pain, unspecified (principal); J45.909 Unspecified asthma, uncomplicated; E78.00 Pure hypercholesterolemia, unspecified
CPT/HCPCS: 93005; 99213; A9270; G0463